=== PATIENT | male | born 1995 | race Hispanic/Latino ===

== ENCOUNTER 2020-07-24 12:59 | Emergency (ER) | payer OTHER ==
--- NOTE | 2020-07-24 14:55 | XRay Report ---
CHEST 1 VIEW 07/24/2020 1:48 PM INDICATION / CLINICAL INFORMATION: Chest Pain. COMPARISON: None available. FINDINGS: SUPPORT DEVICES: None. HEART / MEDIASTINUM: No significant abnormality. LUNGS / PLEURA: No significant pulmonary or pleural abnormality. No pneumothorax. ADDITIONAL FINDINGS: No significant additional findings. IMPRESSION: 1. No acute findings. Signer Name: Boyd Huggins MD Signed: 07/24/2020 2:51 PM Workstation Name: [id number]
[2020-07-24 16:19] VITALS: BP 127/82
--- NOTE | 2020-07-24 16:22 | Emergency Department Report ---
ED ENT HPI - General Chief complaint: Chest Pain Stated complaint: CHEST PAIN/EAR INFECTION/SINUS PRESSURE Time Seen by Provider: 07/24/20 15:17 Source: patient Mode of arrival: Ambulatory Limitations: No Limitations - History of Present Illness Initial comments: This is a 24-year-old male who presents to the ED complaining of sinus pressure headache left ear pain for the past week. Patient states today he started coughing and had a bit of a chest pain with coughing. Patient states that he left work due to him coughing and feeling better. Patient denies fever/chills/shortness of breath or any other medical history. Patient denies taking any medications. MD complaint: ear pain - Related Data Previous Rx's Medication Instructions Recorded Last Taken Type Amoxicillin/K Clav Tab [Augmentin 1 tab PO Q12HR #20 tab 07/24/20 Unknown Rx 875 mg] Benzonatate [Tessalon Perles] 100 mg PO Q8HR #20 capsule 07/24/20 Unknown Rx Fluticasone [Flonase] 1 spray NS QDAY #1 bottle 07/24/20 Unknown Rx Allergies Allergy/AdvReac Type Severity Reaction Status Date / Time No Known Allergies Allergy Unverified 07/24/20 13:52 ED Dental HPI - General Chief complaint: Chest Pain Stated complaint: CHEST PAIN/EAR INFECTION/SINUS PRESSURE Time Seen by Provider: 07/24/20 15:17 Source: patient Mode of arrival: Ambulatory Limitations: No Limitations - Related Data Previous Rx's Medication Instructions Recorded Last Taken Type Amoxicillin/K Clav Tab [Augmentin 1 tab PO Q12HR #20 tab 07/24/20 Unknown Rx 875 mg] Benzonatate [Tessalon Perles] 100 mg PO Q8HR #20 capsule 07/24/20 Unknown Rx Fluticasone [Flonase] 1 spray NS QDAY #1 bottle 07/24/20 Unknown Rx Allergies Allergy/AdvReac Type Severity Reaction Status Date / Time No Known Allergies Allergy Unverified 07/24/20 13:52 ED Review of Systems ROS: Stated complaint: CHEST PAIN/EAR INFECTION/SINUS PRESSURE Other details as noted in HPI Comment: All other systems reviewed and negative ED Past Medical Hx - Past Medical History Previous Medical History?: No - Surgical History Past Surgical History?: No - Social History Smoking Status: Never Smoker - Medications Home Medications: Home Medications Medication Instructions Recorded Confirmed Last Taken Type Amoxicillin/K Clav Tab [Augmentin 1 tab PO Q12HR #20 tab 07/24/20 Unknown Rx 875 mg] Benzonatate [Tessalon Perles] 100 mg PO Q8HR #20 capsule 07/24/20 Unknown Rx Fluticasone [Flonase] 1 spray NS QDAY #1 bottle 07/24/20 Unknown Rx ED Physical Exam - General Limitations: No Limitations General appearance: alert, in no apparent distress - Head Head exam: Present: atraumatic, normocephalic - Eye Eye exam: Present: normal appearance - ENT ENT exam: Present: mucous membranes moist, other (Maxillary sinus tenderness) - Expanded ENT Exam Expanded TM/Canal exam: Erythema: Left TM Mouth exam: Present: normal external inspection Teeth exam: Present: normal inspection Throat exam: Positive: normal inspection. Negative: tonsillar erythema, tonsillomegaly, tonsillar exudate - Neck Neck exam: Present: normal inspection, full ROM - Respiratory Respiratory exam: Present: normal lung sounds bilaterally. Absent: respiratory distress - Cardiovascular Cardiovascular Exam: Present: regular rate, normal rhythm. Absent: systolic murmur, diastolic murmur, rubs, gallop - GI/Abdominal GI/Abdominal exam: Present: soft, normal bowel sounds - Rectal Rectal exam: Present: deferred - Extremities Exam Extremities exam: Present: normal inspection - Back Exam Back exam: Present: normal inspection - Neurological Exam Neurological exam: Present: alert, oriented X3 - Psychiatric Psychiatric exam: Present: normal affect, normal mood - Skin Skin exam: Present: warm, dry, intact, normal color. Absent: rash ED Course Vital Signs 07/24/20 13:44 Temperature 98.6 F Pulse Rate 96 H Respiratory 18 Rate Blood Pressure 131/78 O2 Sat by Pulse 98 Oximetry ED Medical Decision Making - EKG Data EKG shows normal: sinus rhythm Rate: normal - EKG Data Interpretation: normal EKG - Radiology Data Radiology results: report reviewed, image reviewed FINDINGS: SUPPORT DEVICES: None. HEART / MEDIASTINUM: No significant abnormality. LUNGS / PLEURA: No significant pulmonary or pleural abnormality. No pneumothorax. ADDITIONAL FINDINGS: No significant additional findings. IMPRESSION: 1. No acute findings. Signer Name: Boyd Huggins MD Signed: 07/24/2020 2:51 PM Workstation Name: [id number] Transcribed By: DT Dictated By: Sukhwinder Huggins MD Electronically Authenticated By: Sukhwinder Huggins MD Signed Date/Time: 07/24/20 3951 - Medical Decision Making 24-year-old male presents with upper respiratory symptoms secondary to sinusitis no fever during the ED stay. X-ray shows no acute findings, EKG negative for any abnormal findings. Sinus rhythm and rate Discussed with patient symptomatic relief with [id number] medications. Discussed worsening of symptoms patient should return to ED immediately. Discussed increase fluids and diet intake. Discussed rest much needed. Discussed daily vitamin C for immune booster. Discussed follow-up with [facility] physician in 3-5 days. Patient verbally states she understands and will comply the following instructions and follow-up Vital signs stable. Patient is in no acute distress Critical care attestation.: If time is entered above; I have spent that time in minutes in the direct care of this critically ill patient, excluding procedure time. ED Disposition Clinical Impression: Sinusitis, acute, maxillary, Sinus headache Disposition: DC- TO HOME OR SELFCARE Is pt being admited?: No Does the pt Need Aspirin: No Condition: Stable Instructions: Acute Headache (ED), Sinusitis (ED) Additional Instructions: Make sure to follow up with the primary care physician as discussed. Take all your medications as you've been prescribed. If you have any worsening symptoms or develop new symptoms please return to ED immediately. Referrals: [facility] [Outside] - 3-5 Days Forms: Work/School Release Form(ED) Time of Disposition: 16:24
== END 2020-07-24 16:46 | disposition home or self-care (01) ==
LOC: ED 12:59
DX: R51 Headache (principal); J01.00 Acute maxillary sinusitis, unspecified; Z79.2 Long term (current) use of antibiotics; Z79.899 Other long term (current) drug therapy
CPT/HCPCS: 71045; 93005

== ENCOUNTER 2021-09-05 08:39 | Emergency (ER) | payer SELFPAY ==
[2021-09-05 08:56] VITALS: BP 142/96
--- NOTE | 2021-09-05 09:15 | Emergency Department Report ---
HPI - General Chief Complaint: Upper Respiratory Infection Time Seen by Provider: 09/05/21 09:12 - HPI HPI: 25-year-old male presents to the emergency department with a complaint of a 1 to 2-week history of intermittent cough, body aches, sinus pressure. Over the past 2 days the patient has developed some fevers with a T-max of 102.2 F, and some swelling and pain just below his left nostril that he felt may be related to sinusitis. He denies any dental pain or history of dental infections. He denies any past medical history. He is a tobacco smoker. He is not vaccinated against COVID-19. The patient has been using [id number] cough/flu medication, ibuprofen, Tylenol. He last had the [id number] cough/flu medication this morning and ibuprofen last night. No recent travel or sick contacts at home. ED Past Medical Hx - Past Medical History Previous Medical History?: Yes Hx Psychiatric Treatment: Yes (depression) - Surgical History Past Surgical History?: Yes Additional Surgical History: wisdom tooth - Social History Smoking Status: Current Every Day Smoker Substance Use Type: Alcohol, Other - Medications Home Medications: Home Medications Medication Instructions Recorded Confirmed Last Taken Type Amoxicillin/K Clav Tab [Augmentin 1 tab PO Q12HR #20 tab 07/24/20 Unknown Rx 875 mg] Benzonatate [Tessalon Perles] 100 mg PO Q8HR #20 capsule 07/24/20 Unknown Rx Fluticasone [Flonase] 1 spray NS QDAY #1 bottle 07/24/20 Unknown Rx Amoxicillin/Potassium Clav 1 each PO BID #14 tablet 09/05/21 Unknown Rx [Augmentin 875-125 Tablet] Fluticasone [Flonase] 1 spray NS QDAY #1 bottle 09/05/21 Unknown Rx Loratadine [Claritin] 10 mg PO QDAY #15 tablet 09/05/21 Unknown Rx ED Review of Systems ROS: Stated complaint: FEVER,LEFT SIDE OF FACE SWOLEN Other details as noted in HPI Comment: All other systems reviewed and negative Constitutional: fever. denies: malaise Eyes: denies: eye pain, eye discharge, vision change ENT: congestion, other (Facial pain). denies: ear pain, throat pain Respiratory: cough (Intermittent). denies: shortness of breath Cardiovascular: denies: chest pain, edema Gastrointestinal: denies: abdominal pain, diarrhea Genitourinary: denies: dysuria, discharge Musculoskeletal: denies: back pain, arthralgia Skin: denies: rash, lesions Neurological: denies: headache, weakness Physical Exam - Physical Exam Vital Signs: Vital Signs 09/05/21 08:54 Temperature 98.7 F Pulse Rate 89 Respiratory 20 Rate Blood Pressure 142/96 O2 Sat by Pulse 100 Oximetry Physical Exam: GENERAL: The patient is well-developed well-nourished. HENT: Normocephalic. Atraumatic. Patient has moist mucous membranes. Oropharynx is clear without tonsillar hypertrophy, erythema or exudates. No dental abscess. EYES: Extraocular motions are intact. Pupils equal reactive to light bilaterally. NECK: Supple. Trachea is midline. CHEST/LUNGS: Clear to auscultation. There is no respiratory distress noted. HEART/CARDIOVASCULAR: Regular. There is no tachycardia. There is no murmur. ABDOMEN: Abdomen is soft, nontender. Patient has normal bowel sounds. SKIN: Skin is warm and dry. There is a tender, mobile, and slightly fluctuant area just inferior and lateral to the left nare. NEURO: The patient is awake, alert, and oriented. The patient is cooperative. The patient has no focal neurologic deficits. Normal speech. MUSCULOSKELETAL: There is no tenderness or deformity. There is no limitation range of motion. ED Course Vital Signs 09/05/21 08:54 Temperature 98.7 F Pulse Rate 89 Respiratory 20 Rate Blood Pressure 142/96 O2 Sat by Pulse 100 Oximetry ED Medical Decision Making - Medical Decision Making This patient presents with a 1 to 2-week history of intermittent cough, sinus pressure, body aches, and a 2-day history of fever and pain and swelling just below the left nasal passage. He thought that this area of pain and swelling was due to sinusitis but it does not appear to be over one of his sinuses. It is tender, mobile, and slightly fluctuant, and may be consistent with a small subcutaneous abscess or cyst. No overlying erythema. The patient does have some boggy nasal mucosa and tenderness to palpation over his sinuses, and may have a sinusitis as well. Heart and lung sounds are normal to auscultation. No cough heard during examination he does not appear in any respiratory or acute distress. Vital signs have been reassuring including being afebrile. He will be given a prescription for antibiotics, a nasal steroid, and antihistamine. He has been given outpatient referrals for primary care. Critical Care Time: No Critical care attestation.: If time is entered above; I have spent that time in minutes in the direct care of this critically ill patient, excluding procedure time. ED Disposition Clinical Impression: Facial swelling Sinusitis Qualifiers: Sinusitis location: unspecified location Chronicity: unspecified Qualified Code(s): J32.9 - Chronic sinusitis, unspecified Upper respiratory infection Qualifiers: URI type: unspecified URI Qualified Code(s): J06.9 - Acute upper respiratory infection, unspecified Disposition: HOME / SELF CARE / HOMELESS Is pt being admited?: No Condition: Stable Instructions: Upper Respiratory Infection, Adult, Sinusitis, Adult Additional Instructions: Please follow-up with a primary care physician in the next few days. I have given you a referral for a local primary care physician, Dr. Sierra, and a primary care clinic, [facility]. Take all medications as prescribed. Return to the emergency department with any worsening of your symptoms, new or concerning symptoms not addressed during this current emergency department visit, or with any acute distress. Prescriptions: Amoxicillin/Potassium Clav [Augmentin 875-125 Tablet] 1 each PO BID #14 tablet Loratadine [Claritin] 10 mg PO QDAY #15 tablet Fluticasone [Flonase] 1 spray NS QDAY #1 bottle Referrals: SHERRIE SIERRA MD [Staff Physician] - 3-5 Days [facility] [Provider Group] - 3-5 Days Time of Disposition: 09:17
== END 2021-09-05 09:45 | disposition home or self-care (01) ==
LOC: ED 08:39
DX: J06.9 Acute upper respiratory infection, unspecified (principal); J32.9 Chronic sinusitis, unspecified; R60.9 Edema, unspecified; F32.9 Major depressive disorder, single episode, unspecified; Z98.890 Other specified postprocedural states; F17.200 Nicotine dependence, unspecified, uncomplicated
CPT/HCPCS: 99282

== ENCOUNTER 2022-07-15 12:06 | Emergency (ER) | payer SELFPAY ==
[2022-07-15 13:40] VITALS: BP 136/78
--- NOTE | 2022-07-15 14:01 | Emergency Department Report ---
Minor Respiratory - HPI Chief Complaint: Sore Throat Stated Complaint: SORE THROAT/BODY ACHES Time Seen by Provider: 07/15/22 13:44 Duration: 3 Days Pain Location: Throat, Chest Severity: mild Minor Respiratory: Yes Sore Throat, Yes Able to Tolerate Fluids, Yes Cough, No Rhinorrhea, No Ear Pain, No Sick Contacts, No Hemoptysis, No Chest Pain, No Shortness of Breath, No Fever Other History: 26YO COMES TO ER WITH SORE THROAT, COUGH, BODY ACHES. HAD NEG COVID. ED Review of Systems ROS: Stated complaint: SORE THROAT/BODY ACHES Other details as noted in HPI Comment: All other systems reviewed and negative ED Past Medical Hx - Past Medical History Previous Medical History?: Yes Hx Psychiatric Treatment: Yes (depression) - Surgical History Past Surgical History?: Yes Additional Surgical History: wisdom tooth - Family History Family history: no significant - Social History Smoking Status: Current Every Day Smoker Substance Use Type: Alcohol, Other - Medications Home Medications: Home Medications Medication Instructions Recorded Confirmed Last Taken Type Amoxicillin [Trimox CAP] 500 mg PO BID #20 capsule 07/15/22 Unknown Rx Cetirizine HCl [ZyrTEC] 10 mg PO DAILY #30 capsule 07/15/22 Unknown Rx Fluticasone [Flonase] 1 spray NS QDAY #1 bottle 07/15/22 Unknown Rx Minor Respiratory Exam - Exam General: Vital signs noted. No distress. Alert and acting appropriately. HEENT: Yes Pharyngeal Erythema, Yes Pharyngeal Exudates, Yes Moist Mucous Membranes, No Rhinorrhea, No Conjuctival Injection, No Frontal Tenderness, No Maxillary Tenderness Ear: Neither TM Bulge, Neither TM Erythema, Neither EAC Pain, Neither EAC Discharge Neck: Yes Supple, No Adenopathy Lungs: Yes Good Air Exchange, No Wheezes, No Ronchi, No Stridor, No Cough, No Labored Respirations, No Retractions, No Use of Accessory Muscles, No Other Abnormal Lung Sounds Heart: Yes Regular, No Murmur Abdomen: Yes Normal Bowel Sounds, No Tenderness, No Peritoneal Signs Skin: No Rash, No Edema Neurologic: Alert and oriented, no deficits. Musculoskeletal: Unremarkable. ED Course Vital Signs 07/15/22 13:38 Temperature 98.4 F Pulse Rate 90 Respiratory 18 Rate Blood Pressure 136/78 [Right] O2 Sat by Pulse 98 Oximetry ED Medical Decision Making - Radiology Data Radiology results: report reviewed, image reviewed NAP - Medical Decision Making COVID RAPID NEG TODAY Vital Signs 07/15/22 13:38 Temperature 98.4 F Pulse Rate 90 Respiratory 18 Rate Blood Pressure 136/78 [Right] O2 Sat by Pulse 98 Oximetry XRAY NAP DC HOME WITH DC PLAN OF CARE INCLUDING DIET, MEDS, ACTIVITY AND FOLLOW UP HE VERBALIZES UNDERSTANDING OF PLAN OF CARE. - Differential Diagnosis URI Critical care attestation.: If time is entered above; I have spent that time in minutes in the direct care of this critically ill patient, excluding procedure time. ED Disposition Clinical Impression: Pharyngitis, URI (upper respiratory infection) Disposition: HOME / SELF CARE / HOMELESS Is pt being admited?: No Does the pt Need Aspirin: No Condition: Stable Instructions: Pharyngitis, [id number] Additional Instructions: OVER THE COUNTER MOTRIN OR TYLENOL FOR PAIN ANTIBIOTIC UNTIL GONE STAY WELL HYDRATED WITH WATER FOLLOW UP WITH PCP NEXT WEEK REFERRAL BELOW DIET AND ACTIVITY TOLERATED Referrals: SHERRIE HUSSEIN MD [Staff Physician] - 3-5 Days Forms: Work/School Release Form(ED) Time of Disposition: 14:08 Print Language: CITIZEN OF [place]
--- NOTE | 2022-07-15 14:10 | XRay Report ---
CHEST 2 VIEWS INDICATION / CLINICAL INFORMATION: COUGH. COMPARISON: 07/24/2020 FINDINGS: SUPPORT DEVICES: None. HEART / MEDIASTINUM: No significant abnormality. LUNGS / PLEURA: No significant pulmonary or pleural abnormality. No pneumothorax. ADDITIONAL FINDINGS: No significant additional findings. IMPRESSION: 1. No acute findings. Signer Name: Thierry Dhaliwal MD Signed: 07/15/2022 2:06 PM Workstation Name: [id number]
== END 2022-07-15 14:50 | disposition home or self-care (01) ==
LOC: ED 12:06
DX: J06.9 Acute upper respiratory infection, unspecified (principal); J02.9 Acute pharyngitis, unspecified; F32.A Depression, unspecified; F17.200 Nicotine dependence, unspecified, uncomplicated
CPT/HCPCS: 71046; 99283